=== PATIENT | male | born 1955 | race Caucasian/White ===

== ENCOUNTER 2016-04-28 16:32 | Emergency (ER) | payer OTHER ==
--- NOTE | 2016-04-28 18:17 | ED ORDER SUMMARY ---
..... Patient: INGRID FRANCO OrderSheet [facility] VisitID: [id number] [address] [place] [address] 61y, M Registration Date/Time: 04/28/2016 ORDER SHEET Weight: 90.7 kg (stated) Allergies: Dilaudid GENERAL ORDERS: NPO (16:43 04/28/2016 Sadiq Lucero) (16:52 LScaitivan R.N.) Shoulder 2V or more Left Urgent (17:42 04/28/2016 Sadiq Lucero) (17:43 LNations ER Tech1) MEDICATION ORDERS: IV FLUIDS: IV Saline Lock (16:43 04/28/2016 Sadiq Lucero) (16:52 Nakulivan R.N.) Propofol IV 200mg (HIGH ALERT MEDICATION, NOW, TITRATE) (17:44 04/28/2016 Obdulia R.N. verbal order read back to Sadiq Lucero) (17:45 JBoardley R.N.) Given by IV NS : initial bolus 500 mL (1000 mL/hr), then none - for X1 (NOW) (18:00 04/28/2016 Obdulia Joy.N. verbal order read back to Sadiq Lucero) (18:01 JBoardley R.N.) Demerol IV 50 mg (HIGH ALERT MEDICATION, NOW) (18:09 04/28/2016 Sadiq Lucero) (Ack 18:12 JBoardley R.N.) (18:15 JBoardley R.N.) ORDER SHEET NOTES: [Electronically signed by Gil Sanchez R.N. (18:54 04/28/2016)] [Electronically signed by Nic Smith Dr. (22:23 04/28/2016)] [Electronically locked/signed by Gil Sanchez R.N. (18:54 04/28/2016)]
--- NOTE | 2016-04-28 18:17 | ED ORDER SUMMARY ---
..... Patient: INGRID FRANCO OrderSheet [facility] VisitID: [id number] [address] [place] [address] 61y, M Registration Date/Time: 04/28/2016 ORDER SHEET Weight: 90.7 kg (stated) Allergies: Dilaudid GENERAL ORDERS: NPO (16:43 04/28/2016 Sadiq Lucero) (16:52 LScaitivan R.N.) Shoulder 2V or more Left Urgent (17:42 04/28/2016 Sadiq Lucero) (17:43 LNations ER Tech1) MEDICATION ORDERS: IV FLUIDS: IV Saline Lock (16:43 04/28/2016 Sadiq Lucero) (16:52 Nakulivan R.N.) Propofol IV 200mg (HIGH ALERT MEDICATION, NOW, TITRATE) (17:44 04/28/2016 Obdulia R.N. verbal order read back to Sadiq Lucero) (17:45 JBoardley R.N.) Given by IV NS : initial bolus 500 mL (1000 mL/hr), then none - for X1 (NOW) (18:00 04/28/2016 Obdulia Joy.N. verbal order read back to Sadiq Lucero) (18:01 JBoardley R.N.) Demerol IV 50 mg (HIGH ALERT MEDICATION, NOW) (18:09 04/28/2016 Sadiq Lucero) (Ack 18:12 JBoardley R.N.) (18:15 JBoardley R.N.) ORDER SHEET NOTES: [Electronically signed by Gil Sanchez R.N. (18:54 04/28/2016)] [Electronically signed by Nic Smith Dr. (22:23 04/28/2016)] [Electronically locked/signed by Gil Sanchez R.N. (18:54 04/28/2016)]
--- NOTE | 2016-04-28 18:17 | ED NURSING NOTES ---
Clinical Report - Nurses [facility] [place] [address] 04/28/2016 16:34 Patient: INGRID FRANCO TRIAGE Triage time 16:38. Chief Complaint: LEFT UPPER EXTREMITY PAIN. Alert. --16:45 Elma Alatorre R.N. 16:38 04/28/16. BP: 173/91. HR: 97. RR: 20. O2 saturation: 100%. Temp: 97.6 F. Pain level now: 01/11. --16:45 Elma Alatorre R.N. Weight: 90.7 kg stated. Height/Length: 68 inches Per Patient. BMI: 30.4. --16:43 Elma Alatorre R.N. Medications Atorvastatin Calcium Oral. --16:41 Elma Alatorre R.N. A triglyceride pill. --16:42 Elma Alatorre R.N. Allergies Dilaudid.(hives) --16:40 Elma Alatorre R.N. History Arrived by private vehicle. Historian: patient. Primary physician (Chaparro). ( Pt sent from [facility], [place] [facility]., pt states he has a dislocated left shoulder). This occurred today (about 11:00 am). 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 SOCIAL HX: Never smoker. Occasional alcohol use. No drug use. NUTRITIONAL RISK ASSESSMENT: The nutritional risk assessment revealed no deficiencies. --16:45 Elma Alatorre R.N. PROBLEMS: Prostate Cancer. --16:42 Elma Alatorre R.N. ADDITIONAL SURGERIES: no known surgeries. Interventions ID band on patient. To room. --16:45 Elma Alatorre R.N. PHYSICAL ASSESSMENT 16:52 04/28/16. GENERAL / NEURO / PSYCH: Appears anxious and in distress. EXTREMITIES: Left shoulder: (painful). --16:52 Elma Alatorre R.N. NURSING PROGRESS NOTES 16:52 04/28/2016 Site #1 started via IV in the right hand with an 20g angiocath, with aseptic technique and good blood return; one attempt. Saline lock flushed with 10 mL saline (unable to get rainbow). --16:52 Elma Alatorre R.N. 16:53 04/28/16. Extremity elevated (left arm in sling from [facility]). Patient identifiers checked. Call light placed in reach. Bed placed in lowest position. Patient ready for evaluation- chart flagged. --16:53 Elma Alatorre R.N. 16:54 04/28/16. ( PT BROUGHT DVD OF XRAY FROM [facility]). --16:54 Elma Alatorre R.N. 17:20. Care transferred and report given (to Gil). --17:27 Elma Alatorre R.N. 17:29 04/28/2016 PROPOFOL IVP 200 mg given over 10 second(s) via site #1. Allergies verified and confirmed 5 rights. IV patency established. IV site checked: no pain, redness, or swelling. IV flushed thoroughly pre- and post-medication administration. IVP given by physician (100mg given by MD at 1729 and 100mg given by MD at 1730). --17:45 Gil Sanchez R.N. late entry -17:29. ( Conscious sedation started at 1729, please see paper documentation for sedation record. 100mg pushed at 1729 and 100mg pushed at 1730 by ERMD.). --17:47 Gil Sanchez R.N. late entry -17:55. Cardiac rhythm: normal sinus rhythm. --17:59 Gil Sanchez R.N. 17:55 04/28/16. BP: 166/100. HR: 94. RR: 18. O2 saturation: 99% on nasal cannula at 2 liters/minute. End tidal CO2: 31 mmHg. --17:59 Gil Sanchez R.N. 17:30 04/28/2016 Started bag #1 1000 mL IV Fluids IV NS (Saline); at 1000 mL/hr over 30 minute(s) via site #1 via IV pump. Allergies verified and confirmed 5 rights. IV patency established. IV site checked: no pain, redness, or swelling. IV flushed thoroughly pre- and post-medication administration. Completed per protocol. --18:01 Gil Sanchez R.N. 18:00 04/28/16. ( Pt is alert and oriented, good CSM left hand, states he feels "better"). --18:00 Gil Sanchez R.N. 18:01 04/28/2016 IV Fluids IV NS Discontinued: bag #1 infused. Total amount infused: 500 mL. IV patency established. IV site checked: no pain, redness, or swelling. IV flushed thoroughly. --18:01 Gil Sanchez R.N. 18:15 04/28/2016 Demerol (Meperidine HCl) IVP 50 mg given over 2 minute(s) via site #1. Allergies verified and confirmed 5 rights. IV patency established. IV site checked: no pain, redness, or swelling. IV flushed thoroughly pre- and post-medication administration. IVP given by RN. --18:15 Gil Sanchez R.N. 18:17 04/28/16. Cardiac rhythm: normal sinus rhythm. --18:17 Gil Sanchez R.N. 18:15 04/28/16. BP: 162/92. HR: 88. RR: 18. O2 saturation: 99% on room air. Pain level now: 5/10. --18:17 Gil Sanchez R.N. 18:17 04/28/16. ( Pt walked 10 feet then back to bed, able to tolerate PO fluids. Denies N/V.). --18:17 Gil Sanchez R.N. DISPOSITION / DISCHARGE 18:38 04/28/2016 Site #1 removed upon discharge. Catheter intact. --18:38 Gil Sanchez R.N. 18:39 04/28/16. Cardiac rhythm: normal sinus rhythm. Condition at departure: improved. The goals identified in the patient's plan of care were met. No learning barriers present. Discharge instructions provided and reviewed with the patient and spouse. Reviewed warnings. Reviewed medication(s). Treatments reviewed. Reviewed referral to an orthopedic surgeon. Patient and spouse verbalized understanding. Written instructions provided in Australian. The patient was discharged by the physician. He was discharged home and accompanied by family. He left the Emergency Department in a wheelchair and via private vehicle. Family member driving. FALL RISK ASSESSMENT: Fall risk assessment completed. No fall risk identified. --18:39 Gil Sanchez R.N. 18:38 04/28/16. BP: 154/88. HR: 82. RR: 18. O2 saturation: 99% on room air. Temp: 98.2 F (oral). --18:39 Gil Sanchez R.N. 18:39 04/28/16. Departure time: 18:39. --18:39 Gil Sanchez R.N. Locked/Released at 04/28/2016 18:54 by Gil Sanchez R.N.
--- NOTE | 2016-04-28 18:17 | ED CLINICAL REPORT ---
Clinical Report - Physicians/Mid Levels [facility] [address] [place] [address] 04/28/2016 16:34 [id number] Time Seen: 16:41; initial patient contact. Arrived- By private vehicle. Historian- patient. HISTORY OF PRESENT ILLNESS Chief Complaint: Injury to left shoulder. The injury happened just prior to arrival. Occurred at home. Fell while walking and landed on a hard surface; slipped. Patient is experiencing moderate pain. Patient denies injury to the head or neck. ( X ray from reviewed, anterior left shoulder dislocation. No Fx.). REVIEW OF SYSTEMS The patient has had tingling. No numbness. He has had joint pain. All systems otherwise negative, except as recorded above. PAST HISTORY Prostate Cancer. ADDITIONAL SURGERIES: no known surgeries. Additional Surgeries: no known surgeries. Medications: A triglyceride pill. Atorvastatin Calcium Oral. Allergies: Dilaudid.(hives). SOCIAL HISTORY Never smoker. Occasional alcohol use. No drug use. ADDITIONAL NOTES The nursing notes have been reviewed with agreement regarding the chief complaint, PMH and patient medications and allergies. PHYSICAL EXAM Vital Signs: 04/28/2016 16:38 BP: 173/91. HR: 97. RR: 20. O2 saturation: 100%. Temp: 97.6 F. Pain level now: 10/10. Have been reviewed. Hypertensive. Heart rate normal. Respiratory rate normal. Temperature normal. Oxygen saturation normal. Appearance: Alert. Oriented X3. No acute distress. Eyes: Eyes normal inspection. ENT: Pharynx normal. (Malampati 2). CVS: Normal heart rate and rhythm. Heart sounds normal. Respiratory: No respiratory distress. Breath sounds normal. Skin: Skin warm and dry. Normal skin color. Extremities: Left shoulder: moderate tenderness and deformity consistent with a shoulder dislocation. Limited ROM due to pain (diminished abduction, adduction, flexion, extension and external and internal rotation). Neurovascular intact distally. Neuro, Vascular and Tendons: Sensation intact. Motor intact. Vascular status intact. Neuro: Oriented X 3. No motor deficit. No sensory deficit. LABS, X-RAYS, AND EKG Lt Shoulder X-ray: No fracture. Normal alignment. No bony lesion, air in the soft tissue or foreign body. Soft tissues normal. Joint spaces normal. Views: AP with external rotation and AP with internal rotation. Technique: good. The X-rays were independently viewed by me and interpreted contemporaneously by me. A comparison with prior films reveals that the findings are improved (Shoulder in normal allignment as compared to films from .). Interpretation time: 18:15. PROGRESS AND PROCEDURES Procedural Sedation: Time: 1729. Indication: Reduction of dislocation of shoulder. Per protocol, time-out completed immediately before the procedure. Last po intake: this am. ASA classification: 1 - normal healthy patient. Mallampati Classification: Class 2 - tonsillar pillars and uvula hidden by the base of the tongue. Normal airway anatomy. Preparation: consent was obtained and the risks of the procedure, benefits and alternatives were explained to patient. IV established. O2 administered. Placed on pulse oximeter and solder technician. Suction was made available. Medications: Propofol IV administered by physician. Patient status during sedation: was attended constantly and was cooperative was asleep with brisk response to stimulation. Vitals were stable. Oxygen saturation levels were normal. The airway was maintained. The recovery was uneventful. Complications: None. Post-procedure: Recovery was uneventful. Slow recovery. Returned to baseline. Mental status normal. No acute distress. Sedation and procedure performed by me; intra-service time 1-15 minutes. Reduction of Dislocated Shoulder: Time: 1730. Per protocol, time-out completed immediately before the procedure. IV established. O2 administered. Placed on pulse oximeter and solder technician. Neurovascular exam intact pre-procedure. Given Propofol. The left shoulder was reduced using traction-countertraction technique. Reassessed post-procedure. Neurovascular status intact. Deltoid sensation normal. Exam indicated reduction. Confirmed reduction on X-ray. Arm sling applied. Disposition: Discharged home in good and improved condition. Condition: good. CLINICAL IMPRESSION Left anterior shoulder dislocation. Reduction in the ER. INSTRUCTIONS Apply ice for 20 minutes four times a day. Don't apply ice directly to skin. Wear simple sling until released. Your Current Medications: CONTINUE TAKING THE FOLLOWING MEDICATIONS: A triglyceride pill*. Atorvastatin Calcium Oral. Prescription Medications: Hydrocodone/APAP 5mg / 325mg: take 1-2 orally every 6 hours as needed for pain. Dispense twenty (20). No refill. Follow-up: Screening today revealed the patient's blood pressure to be in the hypertensive range. The patient should follow up with a primary care provider for blood pressure management. [facility]-up with: [facility], , [address], , [place], [phone] Follow up in two days. Call for an appointment. (Electronically signed by Nic Smith Dr. 04/28/2016 22:23)
--- NOTE | 2016-04-28 18:17 | ED NURSING NOTES ---
Clinical Report - Nurses [facility] [place] [address] 04/28/2016 16:34 Patient: INGRID FRANCO TRIAGE Triage time 16:38. Chief Complaint: LEFT UPPER EXTREMITY PAIN. Alert. --16:45 Elma Alatorre R.N. 16:38 04/28/16. BP: 173/91. HR: 97. RR: 20. O2 saturation: 100%. Temp: 97.6 F. Pain level now: 01/11. --16:45 Elma Alatorre R.N. Weight: 90.7 kg stated. Height/Length: 68 inches Per Patient. BMI: 30.4. --16:43 Elma Alatorre R.N. Medications Atorvastatin Calcium Oral. --16:41 Elma Alatorre R.N. A triglyceride pill. --16:42 Elma Alatorre R.N. Allergies Dilaudid.(hives) --16:40 Elma Alatorre R.N. History Arrived by private vehicle. Historian: patient. Primary physician (Chaparro). ( Pt sent from [facility], [place] [facility]., pt states he has a dislocated left shoulder). This occurred today (about 11:00 am). 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 SOCIAL HX: Never smoker. Occasional alcohol use. No drug use. NUTRITIONAL RISK ASSESSMENT: The nutritional risk assessment revealed no deficiencies. --16:45 Elma Alatorre R.N. PROBLEMS: Prostate Cancer. --16:42 Elma Alatorre R.N. ADDITIONAL SURGERIES: no known surgeries. Interventions ID band on patient. To room. --16:45 Elma Alatorre R.N. PHYSICAL ASSESSMENT 16:52 04/28/16. GENERAL / NEURO / PSYCH: Appears anxious and in distress. EXTREMITIES: Left shoulder: (painful). --16:52 Elma Alatorre R.N. NURSING PROGRESS NOTES 16:52 04/28/2016 Site #1 started via IV in the right hand with an 20g angiocath, with aseptic technique and good blood return; one attempt. Saline lock flushed with 10 mL saline (unable to get rainbow). --16:52 Elma Alatorre R.N. 16:53 04/28/16. Extremity elevated (left arm in sling from [facility]). Patient identifiers checked. Call light placed in reach. Bed placed in lowest position. Patient ready for evaluation- chart flagged. --16:53 Elma Alatorre R.N. 16:54 04/28/16. ( PT BROUGHT DVD OF XRAY FROM [facility]). --16:54 Elma Alatorre R.N. 17:20. Care transferred and report given (to Gil). --17:27 Elma Alatorre R.N. 17:29 04/28/2016 PROPOFOL IVP 200 mg given over 10 second(s) via site #1. Allergies verified and confirmed 5 rights. IV patency established. IV site checked: no pain, redness, or swelling. IV flushed thoroughly pre- and post-medication administration. IVP given by physician (100mg given by MD at 1729 and 100mg given by MD at 1730). --17:45 Gil Sanchez R.N. late entry -17:29. ( Conscious sedation started at 1729, please see paper documentation for sedation record. 100mg pushed at 1729 and 100mg pushed at 1730 by ERMD.). --17:47 Gil Sanchez R.N. late entry -17:55. Cardiac rhythm: normal sinus rhythm. --17:59 Gil Sanchez R.N. 17:55 04/28/16. BP: 166/100. HR: 94. RR: 18. O2 saturation: 99% on nasal cannula at 2 liters/minute. End tidal CO2: 31 mmHg. --17:59 Gil Sanchez R.N. 17:30 04/28/2016 Started bag #1 1000 mL IV Fluids IV NS (Saline); at 1000 mL/hr over 30 minute(s) via site #1 via IV pump. Allergies verified and confirmed 5 rights. IV patency established. IV site checked: no pain, redness, or swelling. IV flushed thoroughly pre- and post-medication administration. Completed per protocol. --18:01 Gil Sanchez R.N. 18:00 04/28/16. ( Pt is alert and oriented, good CSM left hand, states he feels "better"). --18:00 Gil Sanchez R.N. 18:01 04/28/2016 IV Fluids IV NS Discontinued: bag #1 infused. Total amount infused: 500 mL. IV patency established. IV site checked: no pain, redness, or swelling. IV flushed thoroughly. --18:01 Gil Sanchez R.N. 18:15 04/28/2016 Demerol (Meperidine HCl) IVP 50 mg given over 2 minute(s) via site #1. Allergies verified and confirmed 5 rights. IV patency established. IV site checked: no pain, redness, or swelling. IV flushed thoroughly pre- and post-medication administration. IVP given by RN. --18:15 Gil Sanchez R.N. 18:17 04/28/16. Cardiac rhythm: normal sinus rhythm. --18:17 Gil Sanchez R.N. 18:15 04/28/16. BP: 162/92. HR: 88. RR: 18. O2 saturation: 99% on room air. Pain level now: 5/10. --18:17 Gil Sanchez R.N. 18:17 04/28/16. ( Pt walked 10 feet then back to bed, able to tolerate PO fluids. Denies N/V.). --18:17 Gli Sanchez R.N. DISPOSITION / DISCHARGE 18:38 04/28/2016 Site #1 removed upon discharge. Catheter intact. --18:38 Gil Sanchez R.N. 18:39 04/28/16. Cardiac rhythm: normal sinus rhythm. Condition at departure: improved. The goals identified in the patient's plan of care were met. No learning barriers present. Discharge instructions provided and reviewed with the patient and spouse. Reviewed warnings. Reviewed medication(s). Treatments reviewed. Reviewed referral to an orthopedic surgeon. Patient and spouse verbalized understanding. Written instructions provided in Belgian. The patient was discharged by the physician. He was discharged home and accompanied by family. He left the Emergency Department in a wheelchair and via private vehicle. Family member driving. FALL RISK ASSESSMENT: Fall risk assessment completed. No fall risk identified. --18:39 Gil Sanchez R.N. 18:38 04/28/16. BP: 154/88. HR: 82. RR: 18. O2 saturation: 99% on room air. Temp: 98.2 F (oral). --18:39 Gil Sanchez R.N. 18:39 04/28/16. Departure time: 18:39. --18:39 Gil Sanchez R.N. Locked/Released at 04/28/2016 18:54 by Gil Sanchez R.N.
--- NOTE | 2016-04-28 18:17 | ED CLINICAL REPORT ---
Clinical Report - Physicians/Mid Levels [facility] [address] [place] [address] 04/28/2016 16:34 [id number] Time Seen: 16:41; initial patient contact. Arrived- By private vehicle. Historian- patient. HISTORY OF PRESENT ILLNESS Chief Complaint: Injury to left shoulder. The injury happened just prior to arrival. Occurred at home. Fell while walking and landed on a hard surface; slipped. Patient is experiencing moderate pain. Patient denies injury to the head or neck. ( X ray from reviewed, anterior left shoulder dislocation. No Fx.). REVIEW OF SYSTEMS The patient has had tingling. No numbness. He has had joint pain. All systems otherwise negative, except as recorded above. PAST HISTORY Prostate Cancer. ADDITIONAL SURGERIES: no known surgeries. Additional Surgeries: no known surgeries. Medications: A triglyceride pill. Atorvastatin Calcium Oral. Allergies: Dilaudid.(hives). SOCIAL HISTORY Never smoker. Occasional alcohol use. No drug use. ADDITIONAL NOTES The nursing notes have been reviewed with agreement regarding the chief complaint, PMH and patient medications and allergies. PHYSICAL EXAM Vital Signs: 04/28/2016 16:38 BP: 173/91. HR: 97. RR: 20. O2 saturation: 100%. Temp: 97.6 F. Pain level now: 10/10. Have been reviewed. Hypertensive. Heart rate normal. Respiratory rate normal. Temperature normal. Oxygen saturation normal. Appearance: Alert. Oriented X3. No acute distress. Eyes: Eyes normal inspection. ENT: Pharynx normal. (Malampati 2). CVS: Normal heart rate and rhythm. Heart sounds normal. Respiratory: No respiratory distress. Breath sounds normal. Skin: Skin warm and dry. Normal skin color. Extremities: Left shoulder: moderate tenderness and deformity consistent with a shoulder dislocation. Limited ROM due to pain (diminished abduction, adduction, flexion, extension and external and internal rotation). Neurovascular intact distally. Neuro, Vascular and Tendons: Sensation intact. Motor intact. Vascular status intact. Neuro: Oriented X 3. No motor deficit. No sensory deficit. LABS, X-RAYS, AND EKG Lt Shoulder X-ray: No fracture. Normal alignment. No bony lesion, air in the soft tissue or foreign body. Soft tissues normal. Joint spaces normal. Views: AP with external rotation and AP with internal rotation. Technique: good. The X-rays were independently viewed by me and interpreted contemporaneously by me. A comparison with prior films reveals that the findings are improved (Shoulder in normal allignment as compared to films from .). Interpretation time: 18:15. PROGRESS AND PROCEDURES Procedural Sedation: Time: 1729. Indication: Reduction of dislocation of shoulder. Per protocol, time-out completed immediately before the procedure. Last po intake: this am. ASA classification: 1 - normal healthy patient. Mallampati Classification: Class 2 - tonsillar pillars and uvula hidden by the base of the tongue. Normal airway anatomy. Preparation: consent was obtained and the risks of the procedure, benefits and alternatives were explained to patient. IV established. O2 administered. Placed on pulse oximeter and monitoring manager. Suction was made available. Medications: Propofol IV administered by physician. Patient status during sedation: was attended constantly and was cooperative was asleep with brisk response to stimulation. Vitals were stable. Oxygen saturation levels were normal. The airway was maintained. The recovery was uneventful. Complications: None. Post-procedure: Recovery was uneventful. Slow recovery. Returned to baseline. Mental status normal. No acute distress. Sedation and procedure performed by me; intra-service time 1-15 minutes. Reduction of Dislocated Shoulder: Time: 1730. Per protocol, time-out completed immediately before the procedure. IV established. O2 administered. Placed on pulse oximeter and monitoring manager. Neurovascular exam intact pre-procedure. Given Propofol. The left shoulder was reduced using traction-countertraction technique. Reassessed post-procedure. Neurovascular status intact. Deltoid sensation normal. Exam indicated reduction. Confirmed reduction on X-ray. Arm sling applied. Disposition: Discharged home in good and improved condition. Condition: good. CLINICAL IMPRESSION Left anterior shoulder dislocation. Reduction in the ER. INSTRUCTIONS Apply ice for 20 minutes four times a day. Don't apply ice directly to skin. Wear simple sling until released. Your Current Medications: CONTINUE TAKING THE FOLLOWING MEDICATIONS: A triglyceride pill*. Atorvastatin Calcium Oral. Prescription Medications: Hydrocodone/APAP 5mg / 325mg: take 1-2 orally every 6 hours as needed for pain. Dispense twenty (20). No refill. Follow-up: Screening today revealed the patient's blood pressure to be in the hypertensive range. The patient should follow up with a primary care provider for blood pressure management. Follow-up with: [facility], , [address], , [place], [phone] Follow up in two days. Call for an appointment. (Electronically signed by Nic Smith Dr. 04/28/2016 22:23)
--- NOTE | 2016-04-28 18:49 | DIAGNOSTIC IMAGING REPORT ---
PROCEDURE: XR SHOULDER 2 OR MORE VW-LEFT INDICATION: TRAUMA/INJURY TECHNIQUE: Two-views COMPARISON: None. FINDINGS: Post reduction the shoulder is in good alignment. IMPRESSION: 1. Normal alignment post reduction left shoulder.
--- NOTE | 2016-04-28 22:24 | ED MED RECONCILIATION SUMMARY ---
Patient: INGRID FRANCO Medication Reconciliation Report [facility] VisitID: [id number] [address] [place] [address] 61y, M Registration Date/Time: 04/28/2016 Weight: 90.7 kg Height/Length: 68 in. BMI: 30.4 ALLERGIES: Dilaudid The patient's Home Medications are listed below: CONTINUE TAKING THE FOLLOWING MEDICATIONS: A triglyceride pill Atorvastatin Calcium Oral The source(s) of the original Home Medication information: Not obtained. The following Medications were given to the patient in the Emergency Department: PROPOFOL [IVP] IVP 200 mg, administered: 04/28/2016 5:29:00 PM IV NS IV Fluids bolus 0, then 1000 mL/hr, administered: 04/28/2016 5:30:00 PM Demerol [IVP] IVP 50 mg, administered: 04/28/2016 6:15:00 PM The following Medications were prescribed to the patient: Hydrocodone/APAP 5mg / 325mg: take 1-2 orally every 6 hours as needed for pain. Dispense twenty (20). No refill. -- Nic Smith Dr.
--- NOTE | 2016-04-28 22:24 | ED MED RECONCILIATION SUMMARY ---
Patient: INGRID FRANCO Medication Reconciliation Report [facility] VisitID: [id number] [address] [place] [address] 61y, M Registration Date/Time: 04/28/2016 Weight: 90.7 kg Height/Length: 68 in. BMI: 30.4 ALLERGIES: Dilaudid The patient's Home Medications are listed below: CONTINUE TAKING THE FOLLOWING MEDICATIONS: A triglyceride pill Atorvastatin Calcium Oral The source(s) of the original Home Medication information: Not obtained. The following Medications were given to the patient in the Emergency Department: PROPOFOL [IVP] IVP 200 mg, administered: 04/28/2016 5:29:00 PM IV NS IV Fluids bolus 0, then 1000 mL/hr, administered: 04/28/2016 5:30:00 PM Demerol [IVP] IVP 50 mg, administered: 04/28/2016 6:15:00 PM The following Medications were prescribed to the patient: Hydrocodone/APAP 5mg / 325mg: take 1-2 orally every 6 hours as needed for pain. Dispense twenty (20). No refill. -- Nic Smith Dr.
--- NOTE | 2016-04-28 22:24 | ED MAR SUMMARY ---
..... Medication Administration Record [facility] [address] [place] [address] Patient: INGRID FRANCO Visit ID: [id number] 61y, M Weight: 90.7 kg Height/Length: 68 in BMI: 30.4 ALLERGIES: Dilaudid Given 17:29 04/28/2016 Gil aSnchez R.N. Medication Administered: PROPOFOL [IVP], Dose: 200 mg IVP over 10 second(s), Site: #1 right hand. Medication Ordered: Propofol IV 200mg (HIGH ALERT MEDICATION, NOW, TITRATE). Start 17:30 04/28/2016 Gil Sanchez R.N., Stop 18:01 04/28/2016 Gil Sanchez R.N. Medication Administered: IV NS (SALINE), Dose: IV Fluids over 30 minute(s), Rate: 1000 mL/hr, Dispensed: 1000 mL bag, Site: #1 right hand. Medication Ordered: IV NS : initial bolus 500 mL (1000 mL/hr), then none - for X1 (NOW). Given 18:15 04/28/2016 Gil Sanchez R.N. Medication Administered: DEMEROL [IVP] (MEPERIDINE HCL), Dose: 50 mg IVP over 2 minute(s), Site: #1 right hand. Medication Ordered: Demerol IV 50 mg (HIGH ALERT MEDICATION, NOW).
--- NOTE | 2016-04-28 22:24 | ED MAR SUMMARY ---
..... Medication Administration Record [facility] [address] [place] [address] Patient: INGRID FRANCO Visit ID: [id number] 61y, M Weight: 90.7 kg Height/Length: 68 in BMI: 30.4 ALLERGIES: Dilaudid Given 17:29 04/28/2016 Gil Sanchez R.N. Medication Administered: PROPOFOL [IVP], Dose: 200 mg IVP over 10 second(s), Site: #1 right hand. Medication Ordered: Propofol IV 200mg (HIGH ALERT MEDICATION, NOW, TITRATE). Start 17:30 04/28/2016 Gil Sanchez R.N., Stop 18:01 04/28/2016 Gil Sanchez R.N. Medication Administered: IV NS (SALINE), Dose: IV Fluids over 30 minute(s), Rate: 1000 mL/hr, Dispensed: 1000 mL bag, Site: #1 right hand. Medication Ordered: IV NS : initial bolus 500 mL (1000 mL/hr), then none - for X1 (NOW). Given 18:15 04/28/2016 Gil Sanchez R.N. Medication Administered: DEMEROL [IVP] (MEPERIDINE HCL), Dose: 50 mg IVP over 2 minute(s), Site: #1 right hand. Medication Ordered: Demerol IV 50 mg (HIGH ALERT MEDICATION, NOW).
--- NOTE | 2016-04-28 22:24 | ED DISCHARGE INSTRUCTIONS ---
Patient: INGRID FRANCO General Instructions [facility] VisitID: [id number] [address] [place] [address] 61y, M Registration Date/Time: 04/28/2016 Left anterior shoulder dislocation. Reduction in the ER. INSTRUCTIONS Apply ice for 20 minutes four times a day. Don't apply ice directly to skin. Wear simple sling until released. Your Current Medications: CONTINUE TAKING THE FOLLOWING MEDICATIONS: A triglyceride pill*. Atorvastatin Calcium Oral. Prescription Medications: Hydrocodone/APAP 5mg / 325mg: take 1-2 orally every 6 hours as needed for pain. Dispense twenty (20). No refill. Follow-up: Screening today revealed the patient's blood pressure to be in the hypertensive range. The patient should follow up with a primary care provider for blood pressure management. Follow[facility]up with: [facility], , [address], [place], [address] Follow up in two days. Call for an appointment. ADDITIONAL INFORMATION Dislocation: Shoulder (Reduced) Dislocation of the shoulder joint occurs when a strong force tears the ligaments holding the joint together. This allows the bones to move apart and become stuck out of place. Once the joint is aligned again, it will take about six weeks for the ligaments to heal. Since this injury may weaken the ligaments, you are at risk of another dislocation with less force. Therefore, care should be taken to avoid a similar injury in the future. Shoulder dislocation is treated with a shoulder immobilizer (special type of arm sling). This keeps your arm close to your body to prevent a recurrent dislocation while the ligaments heal. After a few weeks, an exercise program may be started. This will gradually restore range of motion and strength at the shoulder and decrease the risk of another dislocation. Home Care: Until your next doctor visit, wear your shoulder immobilizer at all times . Do not take it off at night to sleep. It is possible to dislocate your arm again in your sleep. You may take it off to bathe or dress, but do not move your arm away from your body. Keep your arm in the same position that the sling was holding it in, until you reapply the sling again. During your next visit, ask your doctor how long you should wear the sling. Apply an ice pack (ice cubes in a plastic bag, wrapped in a towel) over the injured area for 20 minutes every 1-2 hours the first day. Continue with ice packs 3-4 times a day for the next two days, then as needed for the relief of pain and swelling. You may use acetaminophen (Tylenol) or ibuprofen (Motrin, Advil) to control pain, unless another pain medicine was prescribed. [NOTE: If you have chronic liver or kidney disease or ever had a stomach ulcer or GI bleeding, talk with your doctor before using these medicines.] No sports or P.E. until cleared by your doctor. Follow Up with your doctor within one week or as advised by our staff. Shoulder immobilizers and slings should not be worn continuously for more than a few weeks or you may lose some [id number] at the shoulder joint. If you have had repeated dislocations of the same shoulder, that means there has been permanent ligament damage. Ask the orthopedic doctor about surgery to prevent another dislocation. Get Prompt Medical Attention if any of the following occur: Another dislocation of your shoulder Increasing swelling or pain in the shoulder or arm Fingers become cold, blue, numb or tingly Sling A sling is designed to support your arm in a position of rest. It is used for injuries of the hand, forearm, upper arm, and shoulder. A shoulder that is immobilized too long can become stiff and lose range of motion. Follow up with your doctor as advised and do not use the sling longer than directed. Home Use: Leave the sling in place as long as directed by your doctor. Unless told otherwise, you may remove it when bathing, dressing, and when you go to sleep. The sling is adjustable. If it becomes loose, adjust it so that your forearm is horizontal (level with the ground). Your hand should be level with the elbow. Hydrocodone Bitartrate, Acetaminophen Oral tablet What is this medicine? ACETAMINOPHEN; HYDROCODONE (a set a NERISSA edmond fen; willian droe KOE done) is a pain reliever. It is used to treat mild to moderate pain. How should I use this medicine? Take this medicine by mouth. Swallow it with a full glass of water. Follow the directions on the prescription label. If the medicine upsets your stomach, take the medicine with food or milk. Do not take more than you are told to take. Talk to your chief technician x ray regarding the use of this medicine in children. This medicine is not approved for use in children. What side effects may I notice from receiving this medicine? Side effects that you should report to your doctor or health career development manager as soon as possible: allergic reactions like skin rash, itching or hives, swelling of the face, lips, or tongue breathing problems confusion feeling faint or lightheaded, falls stomach pain yellowing of the eyes or skin Side effects that usually do not require medical attention (report to your doctor or health career development manager if they continue or are bothersome): nausea, vomiting stomach upset What may interact with this medicine? alcohol antihistamines isoniazid medicines for depression, anxiety, or psychotic disturbances medicines for sleep muscle relaxants naltrexone narcotic medicines (opiates) for pain phenobarbital ritonavir tramadol What if I miss a dose? If you miss a dose, take it as soon as you can. If it is almost time for your next dose, take only that dose. Do not take double or extra doses. Where should I keep my medicine? Keep out of the reach of children. This medicine can be abused. Keep your medicine in a safe place to protect it from theft. Do not share this medicine with anyone. Selling or giving away this medicine is dangerous and against the law. Store at room temperature between 15 and 30 degrees C (59 and 86 degrees F). Protect from light. Keep container tightly closed. Throw away any unused medicine after the expiration date. Discard unused medicine and used packaging carefully. Pets and children can be harmed if they find used or lost packages. What should I tell my health care provider before I take this medicine? They need to know if you have any of these conditions: brain tumor Crohn's disease, inflammatory bowel disease, or ulcerative colitis drink more than 3 alcohol-containing drinks per day drug abuse or addiction head injury heart or circulation problems kidney disease or problems going to the bathroom liver disease lung disease, asthma, or breathing problems an unusual or allergic reaction to acetaminophen, hydrocodone, other opioid analgesics, other medicines, foods, dyes, or preservatives or trying to get breast-feeding What should I watch for while using this medicine? Tell your doctor or health career development manager if your pain does not go away, if it gets worse, or if you have new or a different type of pain. You may develop tolerance to the medicine. Tolerance means that you will need a higher dose of the medicine for pain relief. Tolerance is normal and is expected if you take the medicine for a long time. Do not suddenly stop taking your medicine because you may develop a severe reaction. Your body becomes used to the medicine. This does NOT mean you are addicted. Addiction is a behavior related to getting and using a drug for a non-medical reason. If you have pain, you have a medical reason to take pain medicine. Your doctor will tell you how much medicine to take. If your doctor wants you to stop the medicine, the dose will be slowly lowered over time to avoid any side effects. You may get drowsy or dizzy when you first start taking the medicine or change doses. Do not drive, use machinery, or do anything that may be dangerous until you know how the medicine affects you. Stand or sit up slowly. There are different types of narcotic medicines (opiates) for pain. If you take more than one type at the same time, you may have more side effects. Give your health care provider a list of all medicines you use. Your doctor will tell you how much medicine to take. Do not take more medicine than directed. Call emergency for help if you have problems breathing. The medicine will cause constipation. Try to have a bowel movement at least every 2 to 3 days. If you do not have a bowel movement for 3 days, call your doctor or health career development manager. Too much acetaminophen can be very dangerous. Do not take Tylenol (acetaminophen) or medicines that contain acetaminophen with this medicine. Many non-prescription medicines contain acetaminophen. Always read the labels carefully. You have been given the following additional information: Dislocation: Shoulder (Reduced) Sling Hydrocodone Bitartrate, Acetaminophen Oral tablet (Electronically signed by Nic Smith Dr. 04/28/2016 22:23)
--- NOTE | 2016-04-28 22:24 | ED DISCHARGE INSTRUCTIONS ---
Patient: INGRID FRANCO General Instructions [facility] VisitID: [id number] [address] [place] [address] 61y, M Registration Date/Time: 04/28/2016 Left anterior shoulder dislocation. Reduction in the ER. INSTRUCTIONS Apply ice for 20 minutes four times a day. Don't apply ice directly to skin. Wear simple sling until released. Your Current Medications: CONTINUE TAKING THE FOLLOWING MEDICATIONS: A triglyceride pill*. Atorvastatin Calcium Oral. Prescription Medications: Hydrocodone/APAP 5mg / 325mg: take 1-2 orally every 6 hours as needed for pain. Dispense twenty (20). No refill. Follow-up: Screening today revealed the patient's blood pressure to be in the hypertensive range. The patient should follow up with a primary care provider for blood pressure management. Follow-up with: [facility], , [address], [place], [address] Follow up in two days. Call for an appointment. ADDITIONAL INFORMATION Dislocation: Shoulder (Reduced) Dislocation of the shoulder joint occurs when a strong force tears the ligaments holding the joint together. This allows the bones to move apart and become stuck out of place. Once the joint is aligned again, it will take about six weeks for the ligaments to heal. Since this injury may weaken the ligaments, you are at risk of another dislocation with less force. Therefore, care should be taken to avoid a similar injury in the future. Shoulder dislocation is treated with a shoulder immobilizer (special type of arm sling). This keeps your arm close to your body to prevent a recurrent dislocation while the ligaments heal. After a few weeks, an exercise program may be started. This will gradually restore range of motion and strength at the shoulder and decrease the risk of another dislocation. Home Care: Until your next doctor visit, wear your shoulder immobilizer at all times . Do not take it off at night to sleep. It is possible to dislocate your arm again in your sleep. You may take it off to bathe or dress, but do not move your arm away from your body. Keep your arm in the same position that the sling was holding it in, until you reapply the sling again. During your next visit, ask your doctor how long you should wear the sling. Apply an ice pack (ice cubes in a plastic bag, wrapped in a towel) over the injured area for 20 minutes every 1-2 hours the first day. Continue with ice packs 3-4 times a day for the next two days, then as needed for the relief of pain and swelling. You may use acetaminophen (Tylenol) or ibuprofen (Motrin, Advil) to control pain, unless another pain medicine was prescribed. [NOTE: If you have chronic liver or kidney disease or ever had a stomach ulcer or GI bleeding, talk with your doctor before using these medicines.] No sports or P.E. until cleared by your doctor. Follow Up with your doctor within one week or as advised by our staff. Shoulder immobilizers and slings should not be worn continuously for more than a few weeks or you may lose some [id number] at the shoulder joint. If you have had repeated dislocations of the same shoulder, that means there has been permanent ligament damage. Ask the orthopedic doctor about surgery to prevent another dislocation. Get Prompt Medical Attention if any of the following occur: Another dislocation of your shoulder Increasing swelling or pain in the shoulder or arm Fingers become cold, blue, numb or tingly Sling A sling is designed to support your arm in a position of rest. It is used for injuries of the hand, forearm, upper arm, and shoulder. A shoulder that is immobilized too long can become stiff and lose range of motion. Follow up with your doctor as advised and do not use the sling longer than directed. Home Use: Leave the sling in place as long as directed by your doctor. Unless told otherwise, you may remove it when bathing, dressing, and when you go to sleep. The sling is adjustable. If it becomes loose, adjust it so that your forearm is horizontal (level with the ground). Your hand should be level with the elbow. Hydrocodone Bitartrate, Acetaminophen Oral tablet What is this medicine? ACETAMINOPHEN; HYDROCODONE (a set a NERISSA edmond fen; willian droe KOE done) is a pain reliever. It is used to treat mild to moderate pain. How should I use this medicine? Take this medicine by mouth. Swallow it with a full glass of water. Follow the directions on the prescription label. If the medicine upsets your stomach, take the medicine with food or milk. Do not take more than you are told to take. Talk to your it support consultant regarding the use of this medicine in children. This medicine is not approved for use in children. What side effects may I notice from receiving this medicine? Side effects that you should report to your doctor or health primary care nurse practitioner as soon as possible: allergic reactions like skin rash, itching or hives, swelling of the face, lips, or tongue breathing problems confusion feeling faint or lightheaded, falls stomach pain yellowing of the eyes or skin Side effects that usually do not require medical attention (report to your doctor or health primary care nurse practitioner if they continue or are bothersome): nausea, vomiting stomach upset What may interact with this medicine? alcohol antihistamines isoniazid medicines for depression, anxiety, or psychotic disturbances medicines for sleep muscle relaxants naltrexone narcotic medicines (opiates) for pain phenobarbital ritonavir tramadol What if I miss a dose? If you miss a dose, take it as soon as you can. If it is almost time for your next dose, take only that dose. Do not take double or extra doses. Where should I keep my medicine? Keep out of the reach of children. This medicine can be abused. Keep your medicine in a safe place to protect it from theft. Do not share this medicine with anyone. Selling or giving away this medicine is dangerous and against the law. Store at room temperature between 15 and 30 degrees C (59 and 86 degrees F). Protect from light. Keep container tightly closed. Throw away any unused medicine after the expiration date. Discard unused medicine and used packaging carefully. Pets and children can be harmed if they find used or lost packages. What should I tell my health care provider before I take this medicine? They need to know if you have any of these conditions: brain tumor Crohn's disease, inflammatory bowel disease, or ulcerative colitis drink more than 3 alcohol-containing drinks per day drug abuse or addiction head injury heart or circulation problems kidney disease or problems going to the bathroom liver disease lung disease, asthma, or breathing problems an unusual or allergic reaction to acetaminophen, hydrocodone, other opioid analgesics, other medicines, foods, dyes, or preservatives or trying to get breast-feeding What should I watch for while using this medicine? Tell your doctor or health primary care nurse practitioner if your pain does not go away, if it gets worse, or if you have new or a different type of pain. You may develop tolerance to the medicine. Tolerance means that you will need a higher dose of the medicine for pain relief. Tolerance is normal and is expected if you take the medicine for a long time. Do not suddenly stop taking your medicine because you may develop a severe reaction. Your body becomes used to the medicine. This does NOT mean you are addicted. Addiction is a behavior related to getting and using a drug for a non-medical reason. If you have pain, you have a medical reason to take pain medicine. Your doctor will tell you how much medicine to take. If your doctor wants you to stop the medicine, the dose will be slowly lowered over time to avoid any side effects. You may get drowsy or dizzy when you first start taking the medicine or change doses. Do not drive, use machinery, or do anything that may be dangerous until you know how the medicine affects you. Stand or sit up slowly. There are different types of narcotic medicines (opiates) for pain. If you take more than one type at the same time, you may have more side effects. Give your health care provider a list of all medicines you use. Your doctor will tell you how much medicine to take. Do not take more medicine than directed. Call emergency for help if you have problems breathing. The medicine will cause constipation. Try to have a bowel movement at least every 2 to 3 days. If you do not have a bowel movement for 3 days, call your doctor or health primary care nurse practitioner. Too much acetaminophen can be very dangerous. Do not take Tylenol (acetaminophen) or medicines that contain acetaminophen with this medicine. Many non-prescription medicines contain acetaminophen. Always read the labels carefully. You have been given the following additional information: Dislocation: Shoulder (Reduced) Sling Hydrocodone Bitartrate, Acetaminophen Oral tablet (Electronically signed by Nic Smith Dr. 04/28/2016 22:23)
== END 2016-04-28 22:49 | disposition home or self-care (01) ==
LOC: ED SRH 16:32
DX: S43.085A Other dislocation of left shoulder joint, initial encounter (principal); W01.0XXA Fall on same level from slipping, tripping and stumbling without subsequent striking against object, initial encounter; Y93.01 Activity, walking, marching and hiking; Y92.009 Unspecified place in unspecified non-institutional (private) residence as the place of occurrence of the external cause; Z88.5 Allergy status to narcotic agent